=== PATIENT | female | born 1985 | race Caucasian/White ===

== ENCOUNTER 2024-10-19 00:19 | Emergency (ER) | payer OTHER, MEDICAID ==
[~2024-10-19] VITALS: Ht 154.9 cm; Wt 115.0 kg
[2024-10-19] MEDS ORDERED: LAMOTRIGINE25 M3 PO (00:26)
[2024-10-19] MEDS ORDERED: TOPIRAMATE25 MG PO (00:26)
[2024-10-19] MEDS ORDERED: LEXAPRO10 MG PO (00:26)
[2024-10-19] MEDS ORDERED: SUBOXONE 8 MG-1 EAC1 SL (00:27)
[2024-10-19] MEDS ORDERED: GABARONE100 MG PO (00:27)
[2024-10-19] MEDS ORDERED: CYCLOBENZAPRINE10 MG PO (02:06)
[2024-10-19] MEDS ORDERED: CYCLOBENZAPRINE HCL 10 MG HOME.PACK PO ONE (02:15)
[2024-10-19 02:16] VITALS: BP 138/76
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
== END 2024-10-19 02:17 | disposition home or self-care (01) ==
LOC: ED 00:19
DX: S46.911A Strain of unspecified muscle, fascia and tendon at shoulder and upper arm level, right arm, initial encounter (principal); R51.9 Headache, unspecified; Z79.899 Other long term (current) drug therapy; V89.2XXA Person injured in unspecified motor-vehicle accident, traffic, initial encounter
CPT/HCPCS: 70450; 73030; 99284-25